=== PATIENT | female | born 1960 | race Caucasian/White ===

== ENCOUNTER → 2023-03-19 15:25 | Outpatient (REF) | payer OTHER, SELFPAY | LOC: HWRAD 15:25 | PROVIDERS: ATTENDING PHYSICIAN Emergency Medicine | DX: J01.00 Acute maxillary sinusitis, unspecified (principal) | CPT/HCPCS: 70486 ==

== ENCOUNTER → 2023-06-27 12:44 | Outpatient (REF) | payer OTHER, SELFPAY | LOC: RAD 12:44 | PROVIDERS: ATTENDING PHYSICIAN Emergency Medicine | DX: I87.8 Other specified disorders of veins (principal) | CPT/HCPCS: 93970 ==

== ENCOUNTER → 2023-07-17 11:05 | Outpatient (REF) | payer OTHER, SELFPAY | LOC: HWRAD 11:05 | PROVIDERS: ATTENDING PHYSICIAN Emergency Medicine | DX: Z00.00 Encounter for general adult medical examination without abnormal findings (principal); N95.1 Menopausal and female climacteric states; R07.89 Other chest pain; R06.02 Shortness of breath | CPT/HCPCS: 71046; 77080 ==

== ENCOUNTER → 2023-07-29 13:31 | Outpatient (REF) | payer OTHER, SELFPAY | LOC: RAD 13:31 | PROVIDERS: ATTENDING PHYSICIAN Emergency Medicine | DX: R91.1 Solitary pulmonary nodule (principal) | CPT/HCPCS: 71260; Q9967 ==

== ENCOUNTER → 2023-10-17 14:22 | Outpatient (REF) | payer OTHER, SELFPAY | LOC: HWRAD 14:22 | PROVIDERS: ATTENDING PHYSICIAN Emergency Medicine | DX: M25.511 Pain in right shoulder (principal) | CPT/HCPCS: 73030 ==

== ENCOUNTER → 2024-01-29 13:05 | Outpatient (REF) | payer OTHER, SELFPAY | LOC: HWRAD 13:05 | PROVIDERS: ATTENDING PHYSICIAN Advanced Practice Midwife; PRIMARYCARE PHYSICIAN Emergency Medicine | DX: R10.2 Pelvic and perineal pain (principal) | CPT/HCPCS: 76830; 76856 ==

== ENCOUNTER → 2024-03-29 13:25 | Outpatient (REF) | payer OTHER, SELFPAY | LOC: HWRAD 13:25 | PROVIDERS: ATTENDING PHYSICIAN Advanced Practice Midwife; FAMILY PHYSICIAN Emergency Medicine | DX: R93.89 Abnormal findings on diagnostic imaging of other specified body structures (principal) | CPT/HCPCS: 76830; 76856 ==

== ENCOUNTER → 2024-07-16 10:14 | Outpatient (REF) | payer OTHER, SELFPAY | LOC: RCS 10:14 | PROVIDERS: ATTENDING PHYSICIAN Internal Medicine Cardiovascular Disease; FAMILY PHYSICIAN Emergency Medicine | DX: R06.09 Other forms of dyspnea (principal); Z01.810 Encounter for preprocedural cardiovascular examination | CPT/HCPCS: 93306 ==

== ENCOUNTER → 2024-07-19 11:00 | Outpatient (REF) | payer OTHER, SELFPAY | LOC: RAD 11:00 | PROVIDERS: ATTENDING PHYSICIAN Emergency Medicine | DX: R91.8 Other nonspecific abnormal finding of lung field (principal) | CPT/HCPCS: 71260; Q9967 ==

== ENCOUNTER → 2024-07-20 08:10 | Outpatient (REF) | payer OTHER, SELFPAY | LOC: RCS 08:10 | PROVIDERS: ATTENDING PHYSICIAN Internal Medicine Cardiovascular Disease; FAMILY PHYSICIAN Emergency Medicine | DX: R06.09 Other forms of dyspnea (principal); Z01.810 Encounter for preprocedural cardiovascular examination | CPT/HCPCS: 78452; 93017; A9500; J2785 ==

== ENCOUNTER → 2024-07-29 12:57 | Outpatient (REF) | payer OTHER, SELFPAY | LOC: RSP 12:57 | PROVIDERS: ATTENDING PHYSICIAN Internal Medicine Cardiovascular Disease; FAMILY PHYSICIAN Emergency Medicine | DX: R06.09 Other forms of dyspnea (principal) | CPT/HCPCS: 94727; 94729; 88738; 94060 ==

== ENCOUNTER 2024-11-05 06:18 | Day surgery (SDC) | payer OTHER, SELFPAY ==
[2024-10-26 10:58] LABS: Hematocrit 43.9 % (37.0-47.0); Hemoglobin 14.0 g/dL (12.0-16.0); Mean Corp Hgb Conc. 31.9 g/dL (33.0-37.0); Mean Corpuscular Volume 87.8 fL (81.0-99.0); Nucleated Red Blood Cells % 0 %; Platelet Count 201 10^3/uL (130-400); Red Cell Dist. Width 13.3 % (11.5-14.5)
[2024-10-26 13:50] LABS: Blood Urea Nitrogen 30 mg/dl (7-17); Calcium 10.1 mg/dl (8.4-10.2); Carbon Dioxide 25 mmol/L (22-30); Chloride 105 mmol/L (98-107); Glucose 123 mg/dl (70-99); Potassium 5.3 mmol/L (3.5-5.1); Sodium 137 mmol/L (135-145); eGFR > 60.00
[2024-10-26 14:05] VITALS: BMI 48.7
[2024-11-05] VITALS (8 sets, daily range): BP systolic 107–133; BP diastolic 63–74; BMI 48.7
[2024-11-05 08:11] LABS: Glucose - Point of Care 116 mg/dl (70-99)
[2024-11-05] MEDS: NORMOSOL-R/PLASMALYTE-A 1000 IV (08:11)
[2024-11-05] MEDS: CYTOTEC 200 MCG PO (08:21)
[2024-11-05] MEDS: DILAUDID 0.25 MG IV (09:36)
[2024-11-05 09:40] LABS: Glucose - Point of Care 130 mg/dl (70-99)
[2024-11-05] MEDS: DILAUDID 0.5 MG IV (09:45)
[2024-11-05] MEDS: ROXICODONE 5 MG PO (10:23)
== END 2024-11-05 11:34 | disposition home or self-care (01) ==
LOC: SDS 06:18
PROVIDERS: ATTENDING PHYSICIAN Obstetrics & Gynecology; FAMILY PHYSICIAN Specialist Research Data Abstracter/Coder
DX: C54.1 Malignant neoplasm of endometrium (principal); N85.4 Malposition of uterus
CPT/HCPCS: 58558; 36415; 80048; 82962; 85025; 86850; 86900; 86901; 88305

== ENCOUNTER → 2025-01-27 07:28 | Outpatient (REF) | payer OTHER, SELFPAY | LOC: RAD 07:28 | PROVIDERS: ATTENDING PHYSICIAN Student in an Organized Health Care Education/Training Program; FAMILY PHYSICIAN Specialist Research Data Abstracter/Coder | DX: Z98.890 Other specified postprocedural states (principal); C54.1 Malignant neoplasm of endometrium; M79.605 Pain in left leg | CPT/HCPCS: 93971 ==